=== PATIENT | female | born 1985 | race Caucasian/White ===

== ENCOUNTER → 2017-02-12 | Outpatient (CLI) | payer OTHER ==
[~2017-02-12] MED LIST: CHOL100010 PO; DOCU-94 PO; FERR325T51 PO; MTR600X PO; PRENTAB26 PO
[2017-02-12 16:46] LABS: LYME DISEASE AB IGG NEG (NEG); LYME DISEASE AB IGM NEG (NEG)
== END | disposition home or self-care (01) ==
LOC: C.LAB 14:18
PROVIDERS: ATTEND Family Medicine
DX: M25.50 Pain in unspecified joint (principal); M79.1 Myalgia; W57.XXXD Bitten or stung by nonvenomous insect and other nonvenomous arthropods, subsequent encounter